=== PATIENT | male | born 1955 | race African-American/Black ===

== ENCOUNTER → 2016-11-20 | Outpatient (CLI) | payer OTHER ==
[~2016-11-20] MED LIST: ASPIRIN81 M2 PO; CHLORTHALIDONE25 MG PO; COREG3.125 MG PO; FLOMAX0.4 M1; LIPITOR20 MG PO; LOSARTAN POTAS100 MG PO
[2016-11-20 16:19] LABS: ALBUMIN SERUM 4.2 g/dL (3.5-5.0); BILIRUBIN,TOTAL 0.7 mg/dL (0.2-2.0); BUN/CREATININE RATIO 14.37; CALCIUM SERUM 8.9 mg/dL (8.4-10.2); CREATININE SERUM 1.6 mg/dL (0.6-1.4); GLOM FILT RATE Estimated 57.4 mL/min (>60); POTASSIUM 3.9 mmol/L (3.5-5.1); PROTEIN TOTAL SERUM 7.5 g/dL (6.0-8.3)
== END | disposition home or self-care (01) ==
LOC: CAMB 14:16
PROVIDERS: Surgery
DX: Z01.812 Encounter for preprocedural laboratory examination (principal); R22.32 Localized swelling, mass and lump, left upper limb
CPT/HCPCS: 36415; 80053

== ENCOUNTER → 2016-11-27 | Day surgery (SDC) | payer OTHER ==
--- NOTE | ~2016-11-27 | OR ---
Unit #: [id number] #: [id number] Patient: SHANKAR SALINAS [id number] [address] [place], [place] [address] [id number] O MR#: [id number] NAME: SHANKAR SALINAS ROOM: Date of Procedure: 11/27/2016 Admission Date: 11/27/2016 Surgeon: Hunter Wang Jr., M.D. : 1955 Attending Physician: Hunter Wang Jr., M.D. Primary Care Physician: Madelaine Rucker Aprn OPERATIVE REPORT INDICATIONS FOR PROCEDURE The patient is a 60-year-old black male, who recently presented to the office complaining of a large mass of the nape of his neck, which has been enlarging causing intermittent pain and discomfort. He also had a smaller mass approximately 6 to 7 cm in diameter of the left posterior shoulder. He desired removal of both of these. He was brought in this time for excision of both. PREOPERATIVE DIAGNOSES Large mass of the nape of the neck compatible with probably a lipoma and cystic mass of the left posterior shoulder. POSTOPERATIVE DIAGNOSES Large mass of the nape of the neck compatible with probably a lipoma and cystic mass of the left posterior shoulder. ANESTHESIA 0.25% Marcaine with epinephrine and general with endotracheal intubation. PROCEDURES PERFORMED Excision the two masses as described above. DESCRIPTION OF PROCEDURE The patient was positioned in the supine position after being anesthetized and intubated, was placed in prone position, prepped and draped in routine fashion for removal of both masses as described above. An incision was made around the mass on the left posterior shoulder with an elliptical portion of skin being taken with this. This was carried down through subcutaneous tissue. There was a small opening of the cyst beneath it, which was preserved and the entire cyst excised from the surrounding tissue with a #10 blade scalpel. After it was removed, it was sent to Pathology. Hemostasis was achieved with Bovie cautery. After hemostasis was achieved, the wound was irrigated and then deeper subcutaneous tissue was approximated with interrupted 3-0 Vicryl sutures. Skin edges were approximated with stainless-steel skin clips and skin stapling device. An incision was made over the top of the large mass of the nape of the neck with a small elliptical portion of the skin being taken with it. This was carried down through the dermis into the subcutaneous tissue. Superior and inferior flaps were developed. There was a large lipomatous mass encountered, which was removed with a #10 blade scalpel and the Bovie Unit #: [id number] #: [id number] Patient: RITA,SHANKAR cautery down to the fascia of the muscle. After it was blocked down to the fascia, the muscle was removed from the fascia of the muscle deep to it and sent to Pathology. After hemostasis was achieved with Bovie cautery, the muscle tissue which was slightly divided was approximated with interrupted [id number] 2-0 Vicryl sutures. A 10 mm Pietro-Johnson drain was placed in deeper aspect of the wound and brought out through a separate stab wound in the right lateral portion of the back. The subcutaneous tissue was then approximated with interrupted 3-0 Vicryl sutures. Skin edges were approximated with stainless-steel skin clips and skin stapling device. Sterile compressive dressings were applied externally. Estimated blood loss for both procedures were less than 50 mL. The patient received less than 2000 mL of crystalloid solution during the procedure. Sponges and instrument counts were correct x3. No drains used. No complications. The patient was taken to the recovery room with stable vital signs in satisfactory condition. Dictated by... Hunter Wang Jr., M.D. JMB/abby TD: 11/28/2016 02:22 JOB #: [id number] OPERATIVE REPORT Page 1 of 1 X Hunter Wang MD X PROCEDURE OPERATIVE NOTE
== END | disposition home or self-care (01) ==
LOC: CSUR 07:11
DX: D17.0 Benign lipomatous neoplasm of skin and subcutaneous tissue of head, face and neck (principal); L72.0 Epidermal cyst; L08.9 Local infection of the skin and subcutaneous tissue, unspecified; K21.9 Gastro-esophageal reflux disease without esophagitis; E78.00 Pure hypercholesterolemia, unspecified; I10 Essential (primary) hypertension; F17.210 Nicotine dependence, cigarettes, uncomplicated; E11.9 Type 2 diabetes mellitus without complications; E66.9 Obesity, unspecified; Z79.82 Long term (current) use of aspirin; Z79.899 Other long term (current) drug therapy; Z86.19 Personal history of other infectious and parasitic diseases
CPT/HCPCS: 82947; 88304; J0330; J1170; J2250; J2405; J2710; J3010